=== PATIENT | female | born 1990 | race African-American/Black ===

== ENCOUNTER 2017-06-16 14:08 | Emergency (ER) | payer SELFPAY, OTHER ==
[2017-06-16] MEDS: IBUPROFEN 800 MG TAB PO (15:30)
[2017-06-16] MEDS: ONDANSETRON ODT 4 MG TAB PO (15:30)
== END 2017-06-16 16:23 | disposition home or self-care (01) ==
LOC: NEPK 14:08
DX: J10.1 Influenza due to other identified influenza virus with other respiratory manifestations (principal)
CPT/HCPCS: 87081; 87804; 87804-59; 87880; 99284

== ENCOUNTER 2017-11-08 14:06 | Emergency (ER) | payer OTHER ==
[~2017-11-08] VITALS: Ht 160 cm; Wt 60.0 kg
[~2017-11-08 14:06] MED LIST: AMOX875 PO; FERR325T PO; OSEL75 PO; PRENCAP6 PO; ZOFR4TAB3 SL
[2017-11-08 14:23] VITALS: BP 114/70; PULSE 70; RESP 16; TEMP 98.9; O2SAT 100
[2017-11-08] MEDS ORDERED: IBUPROFEN 800 MG TAB PO ONE (16:30)
[2017-11-08] MEDS ORDERED: CYCLOBENZAPRINE HCL 10 MG TAB PO ONE (16:30)
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
[2017-11-08] MEDS ORDERED: CYCL10TA PO (18:11)
[2017-11-08] MEDS ORDERED: IBUP1TAB7 PO (18:11)
== END 2017-11-08 18:58 | disposition home or self-care (01) ==
LOC: NEPD 14:06
DX: S16.1XXA Strain of muscle, fascia and tendon at neck level, initial encounter (principal); S39.012A Strain of muscle, fascia and tendon of lower back, initial encounter; Z79.899 Other long term (current) drug therapy; V49.40XA Driver injured in collision with unspecified motor vehicles in traffic accident, initial encounter
CPT/HCPCS: 72125; 84703; 99283